=== PATIENT | male | born 1980 | race American Indian/Alaskan Native ===

== ENCOUNTER 2018-01-20 09:10 | Emergency (ER) | payer BC ==
[2018-01-20 09:19] VITALS: BMI 29.8
--- NOTE | 2018-01-20 09:57 | ED PDOC ---
Upper Extremity Pain/Injury Time Seen by Provider: 01/20/18 09:29 Chief Complaint (Nursing): Upper Extremity Problem/Injury Chief Complaint (Provider): Upper Extremity Problem/Injury History Per: Patient History/Exam Limitations: no limitations Onset/Duration Of Symptoms: Days (x 1 week) Current Symptoms Are (Timing): Still Present Quality: "Pain" Additional Complaint(s): 37 year old male presents to the ED for evaluation of right middle finger pain present for the last week. Patient reports he thought it was a ingrown nail. He was referred here by PMD. Denies fever and vomiting. PMD: none provided Past Medical History Reviewed: Historical Data, Nursing Documentation, Vital Signs Vital Signs: Last Vital Signs Temp 98.1 F 01/20/18 09:18 Pulse 55 L 01/20/18 09:18 Resp 17 01/20/18 09:18 BP 117/80 01/20/18 09:18 Pulse Ox 97 01/20/18 09:18 - Medical History PMH: No Chronic Diseases - Surgical History Other surgeries: retinal reattachment - Family History Family History: States: Unknown Family Hx - Home Medications Home Medications: Ambulatory Orders Medication Instructions Recorded Cephalexin [cephalexin] 500 mg PO QID #28 cap 01/20/18 - Allergies Allergies/Adverse Reactions: Allergies Allergy/AdvReac Type Severity Reaction Status Date / Time No Known Allergies Allergy Verified 01/20/18 09:34 Review of Systems ROS Statement: Except As Marked, All Systems Reviewed And Found Negative Musculoskeletal: Positive for: Hand Pain (right middle finger) Physical Exam - Reviewed Nursing Documentation Reviewed: Yes Vital Signs Reviewed: Yes - Physical Exam Appears: Positive for: Non-toxic, No Acute Distress Head Exam: Positive for: ATRAUMATIC, NORMAL INSPECTION, NORMOCEPHALIC Skin: Positive for: Normal Color, Warm, DRY Extremity: Positive for: Normal ROM (right middle finger neurovascularly intact) , Other (right middle finger paronychia present) Neurologic/Psych: Positive for: Alert, Oriented (x 3). Negative for: Motor/ Sensory Deficits - ECG O2 Sat by Pulse Oximetry: 97 (RA) Pulse Ox Interpretation: Normal Medical Decision Making Medical Decision Making: Time: 09:35 Impression: paronychia Initial Plan: --Patient's finger will be soaked in warm water and infection excised as needed. Time: 11:51 Patient reports an improvement of symptoms after procedure was done. see procedure note. The wound was covered in antibiotic cream. He is stable for discharge. Will be discharged home with prescription for Keflex. Scribe Attestation: Documented by Neha Fitzgerald, acting as a scribe for Maranda Hilton MD Provider Scribe Attestation: All medical record entries made by the Scribe were at my direction and personally dictated by me. I have reviewed the chart and agree that the record accurately reflects my personal performance of the history, physical exam, medical decision making, and the department course for this patient. I have also personally directed, reviewed, and agree with the discharge instructions and disposition. Procedures - Incision and Drainage Site: right middle finger Blade Size: 11 I & D Procedure: betadine prep, sterile dressing applied Progress: Finger was soaked in warm water for a half hour and then covered in betadine. A size 11 blade was used to drain 1 cc of pus from wound. Patient reports feeling relief after procedure. Hand is neurovascularly intact post procedure. It was covered in antibiotic cream. Disposition - Clinical Impression Clinical Impression: Paronychia - Patient ED Disposition Is Patient to be Admitted: No Counseled Patient/Family Regarding: Studies Performed, Diagnosis, Need For Followup - Disposition Disposition: Routine/Home Disposition Time: 11:00 Condition: IMPROVED Additional Instructions: follow up with your primary doctor for reevaluation in one week return to the ED with any worsening or concerning symptoms Prescriptions: Cephalexin [cephalexin] 500 mg PO QID #28 cap Instructions: Paronychia (DC) Forms: [employer] ([employer])
[2018-01-20] MEDS ORDERED: Povidone Iodine Oint 10% Foilpak UD ONE (11:31)
[2018-01-20 11:51] VITALS: BP 119/78; PULSE 78; RESP 18; TEMP 98
[2018-01-20 11:56] VITALS: O2SAT 97
== END 2018-01-20 11:50 | disposition home or self-care (01) ==
LOC: H.ER 09:10
DX: L03.019 Cellulitis of unspecified finger (principal)